=== PATIENT | male | born 1995 | race Caucasian/White ===

== ENCOUNTER 2017-07-24 16:14 | Inpatient (IN) | payer BC, MEDICAID ==
[2017-07-24 21:35] LABS: WHITE BLOOD COUNT 7.7 10^3/ul (4.8-10.8)
[2017-07-24 21:35] LABS: ABNORMAL IP MESSAGE 1; HEMATOCRIT 46.9 % (42.0-52.0); HEMOGLOBIN 15.7 g/dl (14.0-18.0); MEAN CORPUSCULAR HEMOGLOBIN 29.5 pg (29.0-33.0); MEAN CORPUSCULAR HGB CONC 33.5 g/dl (32.0-37.0); POSITIVE DIFF @See below; RED BLOOD COUNT 5.33 10^6/ul (4.70-6.10); RED CELL DISTRIBUTION WIDTH 12.2 % (11.5-14.5)
[2017-07-24 21:44] LABS: PLATELET COUNT 3 10^3/UL (140-415)
[2017-07-24 21:45] LABS: ADD MAN DIFF? YES
[2017-07-24 21:46] LABS: PATH REVIEW? YES
[2017-07-24 21:53] LABS: INR 0.95; PROTIME 12.8 Sec (11.9-14.9)
[2017-07-24 21:54] LABS: PARTIAL THROMBOPLASTIN TIME 27.4 Sec (25.0-35.0)
[2017-07-24 21:58] LABS: ALANINE AMINOTRANSFERASE 43 IU/L (13-69); ALBUMIN 4.3 g/dl (3.3-4.9); ALBUMIN/GLOBULIN RATIO 1.72; ALKALINE PHOSPHATASE 58 IU/L (42-121); ANION GAP 12 (8-16); ASPARTATE AMINO TRANSFERASE 23 IU/L (15-46); BILIRUBIN,INDIRECT 0.4 mg/dl (0-1.1); BILIRUBIN,TOTAL 0.4 mg/dl (0.2-1.3); BLOOD UREA NITROGEN 22 mg/dl (7-20); CALCIUM 9.7 mg/dl (8.4-10.2); CARBON DIOXIDE 27 mmol/L (21-31); CHLORIDE 104 mmol/L (97-110); CREATININE 0.82 mg/dl (0.61-1.24); GLUCOSE 108 mg/dl (70-220); POTASSIUM 3.7 mmol/L (3.5-5.1); SODIUM 139 mmol/L (135-144); TOTAL PROTEIN 6.8 g/dl (6.1-8.1)
[2017-07-24] MEDS ORDERED: ACETAMINOPHEN 325 MG TAB PO (22:30)
[2017-07-24] MEDS ORDERED: ONDANSETRON 4 MG INJ IV ×2 (22:30)
[2017-07-24] MEDS ORDERED: NACL 0.9% 3 ML SYG IV (22:30)
[2017-07-24] MEDS ORDERED: morphine 2 MG INJ IV (22:30)
[2017-07-24] MEDS: SOD CHLORIDE 0.9% 1,000 ML IV (22:58)
[2017-07-24] MEDS: METHYLPRED. NA SUCC 250 MG in DEXTROSE 5% 50 ML IV (22:58)
[2017-07-24 23:37] LABS: TYPE AND SCREEN 1 1
[2017-07-25 00:43] LABS: BASOPHIL #M 0.3 10^3/ul (0.0-0.0); BASOPHILS % (M) 4 % (0-2); LYMPHOCYTES #M 1.7 10^3/ul (0.8-2.9); LYMPHOCYTES % (M) 23 % (15-51); MONOCYTE #M 0.3 10^3/ul (0.3-0.9); MONOCYTES % (M) 5 % (0-11); PLATELET ESTIMATE SIG DECREASED; REACTIVE LYMPHOCYTES #M 0.3 10^3/ul (0.0-0.0); REACTIVE LYMPHOCYTES% (M) 5 % (0-0); SEGMENTED NEUTROPHILS (M) % 63 % (39-77); SMUDGE%M 4 % (0-0)
[2017-07-25 08:39] LABS: ADD MAN DIFF? NO
[2017-07-25 08:40] LABS: ABNORMAL IP MESSAGE 1; BASOPHILS % 0.1 % (0.0-2.0); EOSINOPHILS % 0.1 % (0.0-7.0); HEMATOCRIT 45.1 % (42.0-52.0); LYMPHOCYTES # 0.5 10^3/ul (0.8-2.9); LYMPHOCYTES % 5.5 % (15.0-51.0); MEAN CORPUSCULAR HEMOGLOBIN 29.2 pg (29.0-33.0); MEAN CORPUSCULAR HGB CONC 33.3 g/dl (32.0-37.0); MEAN CORPUSCULAR VOLUME 87.7 fl (82.0-101.0); MEAN PLATELET VOLUME 10.1 fl (7.4-10.4); MONOCYTE # 0.1 10^3/ul (0.3-0.9); MONOCYTES % 1.3 % (0.0-11.0); NEUTROPHIL # 8.6 10^3/ul (1.6-7.5); NEUTROPHILS % 92.8 % (39.0-77.0); POSITIVE DIFF @See below; RED BLOOD COUNT 5.14 10^6/ul (4.70-6.10)
[2017-07-25 08:40] LABS: WHITE BLOOD COUNT 9.3 10^3/ul (4.8-10.8)
[2017-07-25 08:42] LABS: PLATELET COUNT 84 10^3/UL (140-415)
[2017-07-25 09:01] LABS: ALANINE AMINOTRANSFERASE 31 IU/L (13-69); ALBUMIN/GLOBULIN RATIO 1.51; ALKALINE PHOSPHATASE 73 IU/L (42-121); ANION GAP 16 (8-16); ASPARTATE AMINO TRANSFERASE 34 IU/L (15-46); BILIRUBIN,INDIRECT 2.4 mg/dl (0-1.1); BILIRUBIN,TOTAL 2.4 mg/dl (0.2-1.3); BLOOD UREA NITROGEN 18 mg/dl (7-20); CALCIUM 10.7 mg/dl (8.4-10.2); CARBON DIOXIDE 27 mmol/L (21-31); CHLORIDE 104 mmol/L (97-110); CREATININE 0.69 mg/dl (0.61-1.24); GLUCOSE 153 mg/dl (70-220); POTASSIUM 4.2 mmol/L (3.5-5.1); SODIUM 143 mmol/L (135-144); TOTAL PROTEIN 8.3 g/dl (6.1-8.1)
[2017-07-25] MEDS: FAMOTIDINE 20 MG INJ IV (09:09)
[2017-07-25] MEDS: METHYLPREDNISOLONE 125 MG INJ IV (09:09)
[2017-07-25] MEDS: SOD CHLORIDE 0.9% 500 ML IV (22:30)
[2017-07-26] MEDS: PANTOPRAZOLE (EC) 40 MG TAB PO (06:20)
[2017-07-26 06:59] LABS: ADD MAN DIFF? NO
[2017-07-26 07:02] LABS: WHITE BLOOD COUNT 9.8 10^3/ul (4.8-10.8)
[2017-07-26 07:02] LABS: ABNORMAL IP MESSAGE 1; BASOPHILS % 0.3 % (0.0-2.0); EOSINOPHILS % 0.2 % (0.0-7.0); HEMOGLOBIN 14.4 g/dl (14.0-18.0); LYMPHOCYTES # 1.7 10^3/ul (0.8-2.9); LYMPHOCYTES % 17.3 % (15.0-51.0); MEAN CORPUSCULAR HEMOGLOBIN 30.1 pg (29.0-33.0); MEAN CORPUSCULAR HGB CONC 34.3 g/dl (32.0-37.0); MEAN CORPUSCULAR VOLUME 87.7 fl (82.0-101.0); MONOCYTE # 0.8 10^3/ul (0.3-0.9); MONOCYTES % 8.2 % (0.0-11.0); NEUTROPHIL # 7.2 10^3/ul (1.6-7.5); NEUTROPHILS % 73.7 % (39.0-77.0); POSITIVE DIFF @See below; RED BLOOD COUNT 4.79 10^6/ul (4.70-6.10); RED CELL DISTRIBUTION WIDTH 12.4 % (11.5-14.5)
[2017-07-26 07:12] LABS: MEAN PLATELET VOLUME 13.1 fl (7.4-10.4)
[2017-07-26 07:13] LABS: PLATELET COUNT 48 10^3/UL (140-415)
[2017-07-26 07:35] LABS: ANION GAP 14 (8-16); BLOOD UREA NITROGEN 19 mg/dl (7-20); CARBON DIOXIDE 28 mmol/L (21-31); CHLORIDE 105 mmol/L (97-110); CREATININE 0.84 mg/dl (0.61-1.24); GLUCOSE 107 mg/dl (70-220); POTASSIUM 4.2 mmol/L (3.5-5.1); SODIUM 143 mmol/L (135-144)
[2017-07-26 07:37] LABS: CHOL/HDL RATIO 2.8 RATIO; HDL CHOLESTEROL 55 mg/dl (30-63); LDL CHOLESTEROL,CALCULATED 93 mg/dl; TRIGLYCERIDES 46 mg/dl (0-149)
[2017-07-26 07:37] LABS: CHOLESTEROL 157 mg/dl (100-200)
[2017-07-26 07:47] LABS: FREE T4 (FREE THYROXINE) 1.12 ng/dl (0.79-2.35)
[2017-07-26] MEDS: METHYLPREDNISOLONE 125 MG INJ IV (08:21)
[2017-07-26 09:56] LABS: PATH REVIEW CH
[2017-07-26] MEDS ORDERED: IMMUNE GLOBULIN (HUMAN) 6 GM INJ IV (14:00)
[2017-07-26] MEDS ORDERED: WATER STERILE FOR IV (18:00)
[2017-07-26] MEDS ORDERED: IMMUNE GLOBULIN IV (18:00)
[2017-07-26] MEDS: IMMUNE GLOBULIN IV (19:27)
[2017-07-26] MEDS: WATER STERILE FOR IV (19:27)
[2017-07-27] MEDS: PANTOPRAZOLE (EC) 40 MG TAB PO (06:29)
[2017-07-27] MEDS: METHYLPREDNISOLONE 125 MG INJ IV (08:25)
[2017-07-27 10:32] LABS: ADD MAN DIFF? NO
[2017-07-27 10:33] LABS: ABNORMAL IP MESSAGE 1; BASOPHILS % 0.6 % (0.0-2.0); EOSINOPHILS % 0.8 % (0.0-7.0); HEMATOCRIT 43.6 % (42.0-52.0); HEMOGLOBIN 14.7 g/dl (14.0-18.0); LYMPHOCYTES # 0.8 10^3/ul (0.8-2.9); LYMPHOCYTES % 16.5 % (15.0-51.0); MEAN CORPUSCULAR HEMOGLOBIN 29.3 pg (29.0-33.0); MEAN CORPUSCULAR HGB CONC 33.7 g/dl (32.0-37.0); MEAN PLATELET VOLUME 13.1 fl (7.4-10.4); MONOCYTE # 0.3 10^3/ul (0.3-0.9); MONOCYTES % 5.6 % (0.0-11.0); NEUTROPHIL # 3.9 10^3/ul (1.6-7.5); NEUTROPHILS % 76.3 % (39.0-77.0); PLATELET COUNT 77 10^3/UL (140-415); POSITIVE DIFF @See below; RED BLOOD COUNT 5.01 10^6/ul (4.70-6.10); RED CELL DISTRIBUTION WIDTH 12.5 % (11.5-14.5)
[2017-07-27] MEDS: WATER STERILE FOR IV (18:32)
[2017-07-27] MEDS: IMMUNE GLOBULIN IV (18:32)
[2017-07-27] MEDS: METOPROLOL 25 MG TAB PO (20:17)
[2017-07-27] MEDS: ACETAMINOPHEN 325 MG TAB PO (21:09)
[2017-07-28] MEDS: PANTOPRAZOLE (EC) 40 MG TAB PO (06:40)
[2017-07-28 07:10] LABS: WHITE BLOOD COUNT 4.3 10^3/ul (4.8-10.8)
[2017-07-28 07:10] LABS: ABNORMAL IP MESSAGE 1; ADD MAN DIFF? NO; BASOPHILS % 0.9 % (0.0-2.0); EOSINOPHILS # 0.1 10^3/ul (0.0-0.5); EOSINOPHILS % 1.4 % (0.0-7.0); HEMATOCRIT 41.4 % (42.0-52.0); LYMPHOCYTES # 1.5 10^3/ul (0.8-2.9); LYMPHOCYTES % 35.8 % (15.0-51.0); MEAN CORPUSCULAR HEMOGLOBIN 29.5 pg (29.0-33.0); MEAN CORPUSCULAR HGB CONC 33.8 g/dl (32.0-37.0); MEAN CORPUSCULAR VOLUME 87.2 fl (82.0-101.0); MEAN PLATELET VOLUME 13.4 fl (7.4-10.4); MONOCYTE # 0.6 10^3/ul (0.3-0.9); MONOCYTES % 12.8 % (0.0-11.0); NEUTROPHIL # 2.1 10^3/ul (1.6-7.5); NEUTROPHILS % 48.9 % (39.0-77.0); PLATELET COUNT 111 10^3/UL (140-415); POSITIVE DIFF @See below; RED BLOOD COUNT 4.75 10^6/ul (4.70-6.10); RED CELL DISTRIBUTION WIDTH 12.7 % (11.5-14.5)
[2017-07-28 07:36] LABS: ANION GAP 17 (8-16); BLOOD UREA NITROGEN 14 mg/dl (7-20); CALCIUM 9.5 mg/dl (8.4-10.2); CARBON DIOXIDE 29 mmol/L (21-31); CHLORIDE 105 mmol/L (97-110); CREATININE 0.94 mg/dl (0.61-1.24); GLUCOSE 98 mg/dl (70-220); POTASSIUM 4.1 mmol/L (3.5-5.1); SODIUM 147 mmol/L (135-144)
[2017-07-28] MEDS: METHYLPREDNISOLONE 125 MG INJ IV (08:07)
[2017-07-28] MEDS: METOPROLOL 25 MG TAB PO ×2 (08:08→21:26)
[2017-07-28] MEDS: ACETAMINOPHEN 325 MG TAB PO (15:08)
[2017-07-29] MEDS: PANTOPRAZOLE (EC) 40 MG TAB PO (06:02)
[2017-07-29 06:38] LABS: ADD MAN DIFF? NO
[2017-07-29 06:44] LABS: WHITE BLOOD COUNT 4.6 10^3/ul (4.8-10.8)
[2017-07-29 06:44] LABS: BASOPHILS % 0.9 % (0.0-2.0); EOSINOPHILS # 0.1 10^3/ul (0.0-0.5); EOSINOPHILS % 1.3 % (0.0-7.0); HEMATOCRIT 42.2 % (42.0-52.0); HEMOGLOBIN 14.6 g/dl (14.0-18.0); LYMPHOCYTES # 1.9 10^3/ul (0.8-2.9); LYMPHOCYTES % 40.2 % (15.0-51.0); MEAN CORPUSCULAR HEMOGLOBIN 29.8 pg (29.0-33.0); MEAN CORPUSCULAR HGB CONC 34.6 g/dl (32.0-37.0); MEAN CORPUSCULAR VOLUME 86.1 fl (82.0-101.0); MEAN PLATELET VOLUME 12.2 fl (7.4-10.4); MONOCYTE # 0.6 10^3/ul (0.3-0.9); MONOCYTES % 12.8 % (0.0-11.0); NEUTROPHIL # 2.1 10^3/ul (1.6-7.5); NEUTROPHILS % 44.6 % (39.0-77.0); PLATELET COUNT 166 10^3/UL (140-415); RED CELL DISTRIBUTION WIDTH 12.4 % (11.5-14.5)
[2017-07-29 07:17] LABS: ANION GAP 16 (8-16); BLOOD UREA NITROGEN 18 mg/dl (7-20); CALCIUM 9.8 mg/dl (8.4-10.2); CARBON DIOXIDE 28 mmol/L (21-31); CHLORIDE 105 mmol/L (97-110); CREATININE 0.93 mg/dl (0.61-1.24); GLUCOSE 101 mg/dl (70-220); SODIUM 145 mmol/L (135-144)
[2017-07-29] MEDS: predniSONE 20 MG TAB PO (09:55)
[2017-07-29] MEDS: METOPROLOL 25 MG TAB PO (09:56)
== END 2017-07-29 16:00 | disposition home or self-care (01) | DRG 813 ==
LOC: TEL 22:18 → E/R 16:14 → TEL 07-25 00:30
PROC: 30233R1 Transfusion of Nonautologous Platelets into Peripheral Vein, Percutaneous Approach (ICD-10-PCS; principal; 2017-07-24)
DX: D69.3 Immune thrombocytopenic purpura (principal); F17.200 Nicotine dependence, unspecified, uncomplicated; R79.89 Other specified abnormal findings of blood chemistry; F12.10 Cannabis abuse, uncomplicated; I49.9 Cardiac arrhythmia, unspecified
CPT/HCPCS: 36430; 80048; 80053; 80061; 84439; 84443; 85025; 85610; 85730; 86850; 86900; 86901; 93005; 93306; 96374; 99285-25; J1566

== ENCOUNTER 2017-07-31 10:42 | Observation (INO) | payer BC ==
[2017-07-31 12:07] LABS: ADD MAN DIFF? NO
[2017-07-31 12:19] LABS: BASOPHIL # 0.1 10^3/ul (0.0-0.1); EOSINOPHILS # 0.3 10^3/ul (0.0-0.5); EOSINOPHILS % 4.5 % (0.0-7.0); HEMATOCRIT 48.8 % (42.0-52.0); HEMOGLOBIN 16.6 g/dl (14.0-18.0); LYMPHOCYTES # 1.6 10^3/ul (0.8-2.9); MEAN CORPUSCULAR HEMOGLOBIN 29.2 pg (29.0-33.0); MEAN CORPUSCULAR VOLUME 85.8 fl (82.0-101.0); MEAN PLATELET VOLUME 12.2 fl (7.4-10.4); MONOCYTE # 0.7 10^3/ul (0.3-0.9); NEUTROPHIL # 3.1 10^3/ul (1.6-7.5); NEUTROPHILS % 54.2 % (39.0-77.0); PLATELET COUNT 309 10^3/UL (140-415); RED BLOOD COUNT 5.69 10^6/ul (4.70-6.10); RED CELL DISTRIBUTION WIDTH 12.1 % (11.5-14.5)
[2017-07-31 12:19] LABS: WHITE BLOOD COUNT 5.8 10^3/ul (4.8-10.8)
[2017-07-31 12:31] LABS: INR 0.86; PROTIME 11.8 Sec (11.9-14.9); PT RATIO 0.9
[2017-07-31] MEDS: ONDANSETRON 4 MG INJ IV (12:31)
[2017-07-31 12:32] LABS: PARTIAL THROMBOPLASTIN TIME 29.3 Sec (25.0-35.0)
[2017-07-31 12:34] LABS: ANION GAP 16 (8-16); BLOOD UREA NITROGEN 18 mg/dl (7-20); CALCIUM 10.2 mg/dl (8.4-10.2); CARBON DIOXIDE 29 mmol/L (21-31); CHLORIDE 103 mmol/L (97-110); CREATININE 0.85 mg/dl (0.61-1.24); GLUCOSE 91 mg/dl (70-220); POTASSIUM 3.7 mmol/L (3.5-5.1); SODIUM 144 mmol/L (135-144)
[2017-07-31 12:49] LABS: HEMOGLOBIN A1C 5.3 % (0-5.9)
[2017-07-31 12:55] LABS: TROPONIN-I < 0.012 ng/ml (0.00-0.12)
[2017-07-31] MEDS ORDERED: ACETAMINOPHEN 325 MG TAB PO (14:00)
[2017-07-31] MEDS ORDERED: ONDANSETRON 4 MG INJ IV ×2 (14:00→18:00)
[2017-07-31 14:21] LABS: ADD UMIC NO; UR ASCORBIC ACID NEGATIVE (NEGATIVE); UR BILIRUBIN (Dip) NEGATIVE (NEGATIVE); UR BLOOD (Dip) NEGATIVE (NEGATIVE); UR CLARITY CLEAR (CLEAR); UR COLOR YELLOW (YELLOW); UR GLUCOSE (Dip) NEGATIVE (NEGATIVE); UR KETONES (Dip) NEGATIVE (NEGATIVE); UR LEUKOCYTE ESTERASE (Dip) NEGATIVE Leu/ul (NEGATIVE); UR NITRITE (Dip) NEGATIVE (NEGATIVE); UR SPECIFIC GRAVITY (Dip) 1.015 (1.003-1.030); UR TOTAL PROTEIN (Dip) NEGATIVE (NEGATIVE); UR UROBILINOGEN (Dip) NEGATIVE (NEGATIVE)
[2017-07-31 14:53] LABS: AMPHETAMINE/METHAMPHETAMINE Negative (NEGATIVE); BARBITURATES Negative (NEGATIVE); BENZODIAZEPINES Negative (NEGATIVE); CANNABINOIDS Positive (NEGATIVE); COCAINE Negative (NEGATIVE); OPIATES Negative (NEGATIVE)
[2017-07-31] MEDS: ACETAMINOPHEN 325 MG TAB PO (17:45)
[2017-07-31] MEDS: SOD CHLORIDE 0.9% 1,000 ML IV (17:45)
[2017-07-31] MEDS ORDERED: morphine 2 MG INJ IV (18:00)
[2017-08-01 05:22] LABS: ADD MAN DIFF? NO
[2017-08-01 05:29] LABS: BASOPHIL # 0.1 10^3/ul (0.0-0.1); BASOPHILS % 1.3 % (0.0-2.0); EOSINOPHILS # 0.3 10^3/ul (0.0-0.5); EOSINOPHILS % 6.8 % (0.0-7.0); HEMATOCRIT 46.1 % (42.0-52.0); HEMOGLOBIN 15.5 g/dl (14.0-18.0); LYMPHOCYTES # 1.7 10^3/ul (0.8-2.9); LYMPHOCYTES % 43.3 % (15.0-51.0); MEAN CORPUSCULAR HEMOGLOBIN 29.2 pg (29.0-33.0); MEAN CORPUSCULAR HGB CONC 33.6 g/dl (32.0-37.0); MEAN PLATELET VOLUME 12.4 fl (7.4-10.4); MONOCYTE # 0.6 10^3/ul (0.3-0.9); MONOCYTES % 15.5 % (0.0-11.0); NEUTROPHIL # 1.3 10^3/ul (1.6-7.5); NEUTROPHILS % 32.6 % (39.0-77.0); PLATELET COUNT 309 10^3/UL (140-415); RED CELL DISTRIBUTION WIDTH 12.3 % (11.5-14.5)
[2017-08-01 05:51] LABS: ANION GAP 13 (8-16); BLOOD UREA NITROGEN 17 mg/dl (7-20); CALCIUM 9.8 mg/dl (8.4-10.2); CARBON DIOXIDE 31 mmol/L (21-31); CHLORIDE 104 mmol/L (97-110); GLUCOSE 98 mg/dl (70-220); POTASSIUM 4.1 mmol/L (3.5-5.1); SODIUM 144 mmol/L (135-144)
[2017-08-01] MEDS: PANTOPRAZOLE (EC) 40 MG TAB PO (06:36)
[2017-08-01] MEDS: SOD CHLORIDE 0.9% 1,000 ML IV (07:28)
[2017-08-01] MEDS: predniSONE 20 MG TAB PO (09:09)
[2017-08-01] MEDS: DOCUSATE SODIUM 100 MG CAP PO (11:59)
[2017-08-02] MEDS ORDERED: DOCUSATE SODIUM 100 MG CAP PO (09:00)
== END 2017-08-01 18:13 | disposition home or self-care (01) ==
LOC: MS1 08-01 08:09 → E/R 10:42 → MS1 13:32
DX: D69.3 Immune thrombocytopenic purpura (principal); R11.2 Nausea with vomiting, unspecified; F17.200 Nicotine dependence, unspecified, uncomplicated
CPT/HCPCS: 36415; 70450; 71045; 80048; 80307; 81003; 83036; 83735; 84484; 85025; 85610; 85730; 87081; 93005; 96374; 99285-25

== ENCOUNTER 2018-01-16 17:56 | Emergency (ER) | payer BC | END 2018-01-16 21:34 | disposition home or self-care (01) | LOC: FTE 21:34 | DX: M25.571 Pain in right ankle and joints of right foot (principal); F17.210 Nicotine dependence, cigarettes, uncomplicated | CPT/HCPCS: 73610; 73610-RT; 99283-25 ==